=== PATIENT | female | born 1950 | race Caucasian/White ===

== ENCOUNTER 2022-02-07 09:55 | Outpatient (CLI) | payer BC | END 2022-02-07 09:56 | disposition home or self-care (01) | LOC: CSHMAMMO 09:55 | PROVIDERS: ATTEND Internal Medicine | DX: Z12.31 Encounter for screening mammogram for malignant neoplasm of breast (principal); Z13.820 Encounter for screening for osteoporosis; Z80.3 Family history of malignant neoplasm of breast; M85.89 Other specified disorders of bone density and structure, multiple sites; Z78.0 Asymptomatic menopausal state | CPT/HCPCS: 77063; 77067; 77080 ==

== ENCOUNTER → 2022-02-21 | Day surgery (SDC) | payer BC | LOC: CSHULT 12:56 | PROVIDERS: ATTEND Internal Medicine | PROC: 0H9U3ZX Drainage of Left Breast, Percutaneous Approach, Diagnostic (ICD-10-PCS; principal; 2022-02-21) | PROC: 07D63ZX Extraction of Left Axillary Lymphatic, Percutaneous Approach, Diagnostic (ICD-10-PCS; principal; 2022-02-21) | PROC: BH41ZZZ Ultrasonography of Left Breast (ICD-10-PCS; principal; 2022-02-21) | DX: C50.512 Malignant neoplasm of lower-outer quadrant of left female breast (principal); Z17.0 Estrogen receptor positive status [ER+]; R59.0 Localized enlarged lymph nodes | CPT/HCPCS: 19083; 38505; 88305; 88341; 88342; 88360 ==

== ENCOUNTER 2022-03-10 12:33 | Outpatient (CLI) | payer BC | END 2022-03-10 12:34 | disposition home or self-care (01) | LOC: CSHULT 12:33 | PROVIDERS: ATTEND Internal Medicine | DX: C50.412 Malignant neoplasm of upper-outer quadrant of left female breast (principal); R93.1 Abnormal findings on diagnostic imaging of heart and coronary circulation | CPT/HCPCS: 93306 ==

== ENCOUNTER 2022-06-05 12:14 | Outpatient (CLI) | payer BC | END 2022-06-05 12:15 | disposition home or self-care (01) | LOC: CSHULT 12:14 | PROVIDERS: ATTEND Internal Medicine | DX: C50.412 Malignant neoplasm of upper-outer quadrant of left female breast (principal); Z79.899 Other long term (current) drug therapy | CPT/HCPCS: 93306 ==

== ENCOUNTER 2023-01-02 08:28 | Outpatient (CLI) | payer BC ==
[2023-01-02] MEDS ORDERED: Iopamidol 300 61% 100 ML VIAL FS ONE (10:46)
== END 2023-01-02 08:29 | disposition home or self-care (01) ==
LOC: CSHCT 08:28
PROVIDERS: ATTEND Internal Medicine
DX: E32.8 Other diseases of thymus (principal); C50.412 Malignant neoplasm of upper-outer quadrant of left female breast; J98.59 Other diseases of mediastinum, not elsewhere classified
CPT/HCPCS: 71260